=== PATIENT | female | born 1990 | race American Indian/Alaskan Native ===

== ENCOUNTER 2017-06-04 12:18 | Inpatient (IN) | payer MEDICAID ==
--- NOTE | 2017-06-04 13:12 | History and Physical Report ---
History of Present Illness Date of examination: 06/04/17 (Pt sent from OB office with elevated BP for evaluation) Chief complaint: No PNC, EDC 07/23/2017 = 33wk by u/s and dates Seen at 05/02 and given MGSO4 and steroids x [address] Montoya in consult. 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 Clearly has chronic HTN with possibly some kidney injury due to no meds. Has been prescribed HTN meds when not . Was HTN/PreE with all pregnancies but they all delivered at term. I think it is unlikely that she is significantly pre-eclamptic at this time despite +protein in office. She will be admitted for 24-48 hour Obs for labs, 24 hr urine, BP control and evaluation for possible IUGR. BTL consents signed in office today. Known Hx HSV and anemia This assessment written by . @ today's [facility] period visit in OB office. History of present illness: Vital Signs Height: 64 in. Weight (lb): 152 BMI: 26.1 BP: 178/ 114 mm Hg Ur. Protein: 1+ Ur. Glucose: negative Menstrual History Regularity: regular Menses every: 30 days Duration: 4 LMP: 10/16/2016 LMP reliability: month known LMP character: volunteer services assistant test type: urine test BC at conception: none Planned ? no EDC Calculations LMP: 07/23/2017 EDC Confirmation: 07/23/2017 Gestational Age: 33 weeks Past History : 5 Term Births: 3 Living Children: 3 Para: 3 Aborta: 1 Elect. Ab: 1 # 1 Delivery date: 10/26/2012 Weeks Gestation: 40 labor: no Delivery type: Infant Sex: Male weight: 7-6 Comments: Pre-E, HTN # 2 Delivery date: 05/12/2014 Delivery type: EAB # 3 Delivery date: 01/15/2015 Weeks Gestation: 39+2 labor: no Delivery type: Infant Sex: Male weight: 6-6 Comments: PreE, HTN # 4 Delivery date: 03/23/2016 Weeks Gestation: 38 labor: no Delivery type: Sex: Male weight: 6-0 Past Medical History: Hypertension Past Surgical History: negative Past Medical History Anesthesia Complications: negative Anemia: negative Autoimmune Disorder: negative Bleeding Disorder: negative Blood Transfusions: negative Breast Disease: negative Diabetes: negative Heart Disease: negative Hypertension: positive Hepatitis/Liver Disease: negative Kidney Disease/UTI: negative Neurologic/Epilepsy/Migraines: negative Phlebitis/Varicosities: negative Psychiatric: negative Pulmonary Disease/Asthma: negative Thyroid Disease: negative Hospitalizations: negative Surgery (Non-facs teacher): negative Infection History Hx of STD: none HIV Risk Eval: low risk Hepatitis B Risk Eval: low risk Personal hx. of genital herpes: yes Varicella/Chicken Pox Status: Unknown TB Risk: no Genetic History Congenital Heart Defect: Mom: no Dad: no Juliann Disease: Mom: no Dad: no Thalassemia Mom: no Dad: no Neural Tube Defect Mom: no Dad: no Down's Syndrome Mom: no Dad: no Timi-Sachs Mom: no Dad: no Sickle Cell Disease/Trait Mom: no Dad: no Hemophilia Mom: no Dad: no Muscular Dystrophy Mom: no Dad: no Cystic Fibrosis Mom: no Dad: no [place] Chorea Mom: no Dad: no Mental Retardation Mom: no Dad: no Fragile X Mom: no Dad: no Other Genetic/Chromosomal Disorder Mom: no Dad: no Child w/other defect Mom: no Dad: no Enviromental Exposures Xray Exposure: no Medication, drug, or alcohol use since LMP: no Chemical/Other Exposure: no Exposure to Cat Liter: no Active Medications (reviewed today): None Current Allergies (reviewed today): No known allergies Laboratory Results Routine Urinalysis Leukocytes: 2+ Nitrite: negative Urobilinogen: negative Protein: 1+ Blood: hemolyzed trace Ketone: negative Bilirubin: negative Glucose: negative Urine HCG: positive Review of Systems General Denies fever, chills, sweats, anorexia, fatigue, weakness, malaise, weight loss and sleep disorder. Denies nausea, vomiting, headache, swelling of legs, abdominal pain, vaginal discharge, vaginal bleeding and contractions. Denies vaginal discharge, incontinence, dysuria, hematuria, urinary frequency, amenorrhea, menorrhagia, abnormal vaginal bleeding, pelvic pain, genital sores, decreased libido, painful periods, painful sex, urinary urgency, hot flashes, vaginal dryness, vaginal itching and vaginal odor. CV Denies chest pains, palpitations, syncope, dyspnea on exertion, orthopnea, PND and peripheral edema. Resp Denies cough, dyspnea at rest, excessive sputum, hemoptysis, wheezing and pleurisy. GI Denies nausea, vomiting, diarrhea, constipation, change in bowel habits, abdominal pain, melena, hematochezia, jaundice, gas/bloating, indigestion/ heartburn, dysphagia and odynophagia. Endo Denies cold intolerance, heat intolerance, polydipsia, polyphagia, polyuria and unusual weight change. Breast Denies left breast lump, right breast lump, nipple discharge, bloody discharge from nipple, breast pain, abnormal mammogram and breast enlargement. MS Denies back pain, joint pain, joint swelling, muscle cramps, muscle weakness, stiffness, arthritis, sciatica, restless legs, leg pain at night and leg pain with exertion. Derm Denies rash, itching, dryness and suspicious lesions. Neuro Denies paralysis, paresthesias, headache, seizures, tremors, vertigo, transient blindness, frequent falls, frequent headaches and difficulty walking. Psych Denies depression, anxiety, irritability and mood swings. Eyes Denies blurring, diplopia, irritation, discharge, vision loss, eye pain and photophobia. ENT Denies earache, ear discharge, tinnitus, decreased hearing, nasal congestion, nosebleeds, sore throat and hoarseness. Allergy Denies urticaria, allergic rash, hay fever and recurrent infections. Heme Denies abnormal bruising, bleeding and enlarged lymph nodes. PHYSICAL EXAM HEENT: PERRLA, normal conjunctiva, external nose and nasal mucosa normal, oropharynx clear Neck/Thyroid: supple, thyroid normal Skin no significant abnormal lesions or rashes Chest: respiratory effort normal, clear to auscultation Breasts: normal without skin changes or masses CV: regular, normal S1-S2, no murmur, no rub, no gallop but hyperdynamic heart sounds suggestive of anemia Abdomen: normal bowel sounds, soft, nontender, no HSM Musculoskeletal: grossly normal ROM in joints, no joint tenderness or muscle weakness Neuro: grossly normal DTRs, sensation, strength, cranial nerves Extremities: no clubbing, cyanosis, or edema NAIL ARTIST Exams Vulva/Vagina: No lesions, normal BUS, normal rugae Cervix: No lesions; no cervical motion tenderness, closed Uterus: gravid Fundal Ht: 28 size: SGA Presentation: vertex FHT: 140s activity: + Adnexae: no masses or tenderness Past History - Obstetrical History Expected Date of Delivery: 07/23/17 Actual Gestation: 33 Week(s) 0 Day(s) : 5 Para: 3 (pt reports hypertension with each ) Hx # Term Pregnancies: 3 Induced : 1 Number of Living Children: 3 Medications and Allergies Allergies Allergy/AdvReac Type Severity Reaction Status Date / Time No Known Allergies Allergy Unverified 05/22/14 13:53 Home Medications Medication Instructions Recorded Confirmed Last Taken Type Ferrous Sulfate [Feosol] 325 mg PO DAILY 01/16/15 06/04/17 1 Day Ago History 1 Active Meds: Active Medications Lactated Ringer's (Lactated Ringers) 1,000 mls @ 125 mls/hr IV DIRECT HERNANDEZ - Vital Signs Vital signs: Vital Signs Pulse BP 75 164/96 06/04/17 12:51 06/04/17 12:51 Temp Pulse Resp BP Pulse Ox 97.7 F 66 14 146/87 99 06/04/17 12:59 06/04/17 13:08 06/04/17 12:59 06/04/17 12:53 06/04/17 13:08 - Physical Exam Breasts: Positive: deferred Cardiovascular: Regular rate, Normal S1, Normal S2 Lungs: Positive: Normal air movement Abdomen: Positive: normal appearance, soft, normal bowel sounds. Negative: distention, tenderness Genitourinary (Female): Positive: normal external genitalia Vulva: both: normal Vagina: Positive: normal moisture. Negative: discharge Cervix: Negative: lesion, discharge Uterus: Positive: normal size, normal contour Adnexa: both: normal Anus/Rectum: Positive: normal perianal skin, heme negative. Negative: rectal mass, hemorrhoids Extremities: Positive: normal Deep Tendon Reflex Grade: Normal +2 - Obstetrical FHR: category 1 Uterine Contraction Monitor Mode: External Uterine Contraction Pattern: Absent Uterine Tone Measurement Phase: Resting Results Result Diagrams: 06/04/17 13:33 All other labs normal. PN labs drawn at this visit PIH labs drawn also. Ongoing 24hr urine Assessment and Plan No PNC, EDC 07/23/2017 = 33wk by u/s and dates Seen at [facility] /21 and given MGSO4 and steroids x [address] Montoya in consult. 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 Clearly has chronic HTN with possibly some kidney injury due to no meds. Has been prescribed HTN meds when not . Was HTN/PreE with all pregnancies but they all delivered at term. I think it is unlikely that she is significantly pre-eclamptic at this time despite +protein in office. She will be admitted for 24-48 hour Obs for labs, 24 hr urine, BP control and evaluation for possible IUGR. BTL consents signed in office today. Known Hx HSV and anemia This assessment written by . @ today's [facility] period visit in OB office. Pt has arrived to L&D and admitted to [facility]. All labs and consult ordered. Spoke with [facility] message sent to to see pt. Spoke with She recommends No antihypertensive at this time, Apresoline if BP >160/110. They will see pt in AM is aware of admission.
[2017-06-04 13:27] LABS: Urine Drugs of Abuse Note Disclamer
[2017-06-04] MEDS ORDERED: APRESOLINE IV PRN (13:33)
[2017-06-04 13:39] LABS: Bilirubin,Urine NEG (Negative); Blood,Urine NEG (Negative); Ketones,Urine NEG (Negative); Leukocyte Esterase,Urine TR (Negative); Mucus,Urine 1+ /HPF; Nitrite,Urine NEG (Negative); WBC,Urine < 1.0 /HPF (0.0-6.0)
[2017-06-04 14:11] LABS: Hematocrit 28.1 % (30.3-42.9); Hemoglobin 9.4 gm/dl (10.1-14.3); Mean Corpuscular HGB Conc 33 % (30-34); Mean Corpuscular Volume 76 fl (79-97); Platelet Count 105 K/mm3 (140-440); Red Blood Count 3.69 M/mm3 (3.65-5.03); White Blood Count 5.3 K/mm3 (4.5-11.0)
[2017-06-04 14:13] LABS: Mean Corpuscular Hemoglobin 26 pg (28-32)
[2017-06-04 14:52] LABS: HIV-1 Antigen p24 Non React (Non React); HIVR-1/2 Ab Non React (Non React)
--- NOTE | 2017-06-04 15:08 | Ultrasound Report ---
ULTRASOUND BIOPHYSICAL PROFILE: History: well being Technique: Transabdominal ultrasound with Doppler interrogation. 2 - breathing movements 2 - movements 2 - posture and tone 2 - Qualitative amniotic fluid volume 8 - TOTAL SCORE OF POSSIBLE 8 Heart Rate (bpm) 150
--- NOTE | 2017-06-04 15:10 | Ultrasound Report ---
ULTRASOUND OB GREATER THAN 14 WEEKS FETUS History: well-being Technique: Transabdominal ultrasound with Doppler interrogation. Gestation: Single Position: Cephalic Amniotic Fluid: Normal CAROL = 11.5 cm Placenta: Anterior Placental Grade: 2 Heart Rate: 150 BPM Cervical length: 4.0 cm (Normal > 3 cm) NEUROANATOMY VISUALIZED: Choroid Plexus Cisterna Magnum Cerebellum Lateral Ventricle ANATOMY VISUALIZED: Stomach Kidneys Bladder Diaphragm 4 Chamber Heart Heart 3 Vessel Cord Abd. Cord Insert SPINE VISUALIZED: Longitudinal Transverse BPD: 8.0 cm = 32 w 2 d HC: 30.0 cm = 33 w 2 d AC: 29.0 cm = 33 w 3 d FL: 6.4 cm = 33 w 0 d HC/AC Ratio: 1.04 Cephalic Index: 80.8 Estimated Weight: 2088 grams. 39th percentile Clinical age = 33 w 0 d EDC: 07/23/17 US Gest. Age = 32 w 6 d EDC: Impression: No acute abnormality is appreciated.
[2017-06-04 15:12] LABS: Basophils % (Manual) 0 % (0.0-1.8); Blastocytes % (Manual) 0 %
[2017-06-04 15:13] LABS: Anisocytosis 2+; Elliptocytes Few; Ovalocytes Few
[2017-06-04 15:14] LABS: Platelet Estimate Appears Decreased
[2017-06-04 15:15] LABS: Diff Status Complete; Microcytosis Few
--- NOTE | 2017-06-04 15:40 | Event Note ---
Date: 06/04/17 HTN: first few BP 140-160/95-100 (which is not as bad as office BP of 178/144), has had one dose Apresoline, prob eventually will need Labetolol. Patient is asymptomatic, RUQ not tender, DTR 1+/2+ CBC: platelets low at 106,000 (I believe they were low a month ago at [facility]), Hct 28 U/A: protein 1+ (24 hour urine being collected) Possible IUGR (based on clinical exam) is NOT Confirmed by today u/s Status: CAROL wnl, BPP 03/19
--- NOTE | 2017-06-04 18:16 | Event Note ---
Date: 06/04/17 Agree with mw exam and note. Will con't 24 hr urine collection and monitor bp closely. MFM to see pt in the am.
[2017-06-04] MEDS: LACTATED RINGERS 1,000 ML IV SCH (22:33)
--- NOTE | 2017-06-04 22:37 | Event Note ---
Date: 06/04/17 Pt strip reviewed. Will decrease to NST q shift as she has had CAT I tracing since admission and songram was normal today with growth in the 37%tile. BPs con 't to be labile but otherwise not in severe range. Plan of care d/w pt and all questions were addressed and answered.
[2017-06-05] MEDS: LACTATED RINGERS 1,000 ML IV SCH ×2 (05:55→08:01)
[2017-06-05] MEDS ORDERED: APRESOLINE IV ONE (07:30)
--- NOTE | 2017-06-05 09:11 | Event Note ---
Date: 06/05/17 Patient stable at present with mod HTN only. Will make clinical decisions after 24 hr urine resulted. Greatly appreciate Dr Mccarthy's assistance and consult.
[2017-06-05 11:31] LABS: Alanine Aminotransferase 6 units/L (7-56); Albumin 3.4 g/dL (3.9-5); Albumin/Globulin Ratio 1.2 %; Alkaline Phosphatase 113 units/L (35-129); Anion Gap 16 mmol/L; BUN/Creatinine Ratio 8; Blood Urea Nitrogen 3 mg/dL (7-17); Calcium 8.9 mg/dL (8.4-10.2); Carbon Dioxide 23 mmol/L (22-30); Chloride 103.2 mmol/L (98-107); Glucose 85 mg/dL (65-100); Potassium 3.4 mmol/L (3.6-5.0); Sodium 139 mmol/L (137-145); Total Protein 6.3 g/dL (6.3-8.2)
[2017-06-05] MEDS ORDERED: NORMODYNE PO ONE (16:19)
--- NOTE | 2017-06-05 16:47 | Discharge Summary ---
Providers - Providers Date of Admission: 06/04/17 12:55 Date of discharge: 06/05/17 Attending physician: NINO NUNEZ 06/04/17 13:01 Consult to Physician [CONS] Routine Consulting Provider: PATRICK RANGEL Reason For Exam: maternal hypertension; insuff care Place consult to:: LUIS M Notified:: OFFICE Phone number called:: [phone] Was contact made?: Yes If yes, spoke with:: TOREY Time called:: 13:00 Comment:: SPOKE WITH THE OFFICE Primary care physician: RUBBER STAMP DIE INSPECTOR Hospitalization Reason for admission: other (severe hypertension at weeks, for BP control and 24 hr urine) Procedure: other ( testing ) Discharge diagnosis: other (IUP ) Disposition: DC-01 TO HOME OR SELFCARE - Discharge Diagnoses (1) Hypertension complicating in third trimester Status: Acute Comment: 24 hr urine was 252 gm protein so pre eclampsia is ruled out and she is discharged home on Labetolol 100 mg bid to RTO in 1 week All other labs except low platelets were wnl (2) Gestational thrombocytopenia Status: Acute Qualifiers: Trimester: T Comment: plt 105,000 (3) 33 weeks gestation of Status: Acute (4) Anemia Status: Acute Qualifiers: Anemia type: unspecified Iron deficiency anemia type: I Vitamin B12 deficiency anemia type: V Folate deficiency anemia type: F Bone marrow failure anemia type: B Hemolytic anemia type: H Other causes of anemia: O Chronic kidney disease stage: C Qualified Code(s): D64.9 - Anemia, unspecified (5) Insufficient care in third trimester Status: Acute Plan - Discharge Medications Prescriptions: Labetalol [Normodyne TAB] 100 mg PO BID #60 tablet - Provider Discharge Summary Activity: routine Diet: routine Instructions: routine Additional instructions: [] Smoking cessation referral if applicable(refer to patient education folder for contact #) [] Refer to [facility] Booklet Call your doctor immediately for: * Fever > 100.5 * Heavy vaginal bleeding ( >1 pad per hour) * Severe persistent headache * Shortness of breath * Reddened, hot, painful area to leg or breast * Drainage or odor from incision. * Keep incision clean and dry at all times and follow doctor's instructions regarding bathing/showering - Follow up plan Follow up: PRIMARY CAREMD [Primary Care Provider] - 7 Days Forms: Discharge Signature Page
[2017-06-05 17:51] VITALS: BP 144/93
== END 2017-06-05 18:00 | disposition home or self-care (01) | DRG 781 ==
LOC: TRG 12:18 → LD 12:22 → TRG 12:55 → LD 12:55
PROVIDERS: ADMIT Obstetrics & Gynecology; ATTEND Obstetrics & Gynecology
DX: O16.3 Unspecified maternal hypertension, third trimester (principal); O99.113 Other diseases of the blood and blood-forming organs and certain disorders involving the immune mechanism complicating pregnancy, third trimester; O99.013 Anemia complicating pregnancy, third trimester; O14.93 Unspecified pre-eclampsia, third trimester; Z3A.33 33 weeks gestation of pregnancy; D69.6 Thrombocytopenia, unspecified
CPT/HCPCS: 36415; 76805; 76819; 80053; 80307; 81001; 82570; 82951; 82962; 84156; 85007; 85025; 85660; 86592; 86706; 86762; 86803; 86850; 86900; 86901; 87806; J0360; J7120

== ENCOUNTER 2017-07-10 20:39 | Inpatient (IN) | payer MEDICAID ==
[2017-07-10] MEDS ORDERED: LACTATED RINGERS 1,000 ML ONE (21:36)
--- NOTE | 2017-07-10 21:36 | History and Physical Report ---
History of Present Illness Date of examination: 07/10/17 History of present illness: Patient presented to labor and delivery with complaints of regular contractions. Initial examination by triage nurse revealed the patient was 6 cm. Patient's care complicated by late care and chronic hypertension. Menstrual History Regularity: regular Menses every: 30 days Duration: 4 LMP: 10/16/2016 LMP reliability: month known LMP character: freight conductor test type: urine test BC at conception: none Planned ? no EDC Calculations LMP: 07/23/2017 EDC Confirmation: 07/23/2017 Past History : 5 Term Births: 3 Living Children: 3 Para: 3 Aborta: 1 Elect. Ab: 1 # 1 Delivery date: 10/26/2012 Weeks Gestation: 40 labor: no Delivery type: Sex: Male weight: 7-6 Comments: Pre-E, HTN # 2 Delivery date: 05/12/2014 Delivery type: EAB # 3 Delivery date: 01/15/2015 Weeks Gestation: 39+2 labor: no Delivery type: Sex: Male weight: 6-6 Comments: PreE, HTN # 4 Delivery date: 03/23/2016 Weeks Gestation: 38 labor: no Delivery type: Sex: Male weight: 6-0 Past Medical History: Hypertension Past Surgical History: EAB Past Medical History Anesthesia Complications: negative Anemia: negative Autoimmune Disorder: negative Bleeding Disorder: negative Blood Transfusions: negative Breast Disease: negative Diabetes: negative Heart Disease: negative Hypertension: positive Hepatitis/Liver Disease: negative Kidney Disease/UTI: negative Neurologic/Epilepsy/Migraines: negative Phlebitis/Varicosities: negative Psychiatric: negative Pulmonary Disease/Asthma: negative Thyroid Disease: negative Hospitalizations: negative Surgery (Non-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 of genital herpes: yes Varicella/Chicken Pox Status: Unknown TB Risk: no Genetic History Congenital Heart Defect: Mom: no Dad: no Juliann Disease: Mom: no Dad: no Thalassemia Mom: no Dad: no Neural Tube Defect Mom: no Dad: no Down's Syndrome Mom: no Dad: no Timi-Sachs Mom: no Dad: no Sickle Cell Disease/Trait Mom: no Dad: no Hemophilia Mom: no Dad: no Muscular Dystrophy Mom: no Dad: no Cystic Fibrosis Mom: no Dad: no [place] Chorea Mom: no Dad: no Mental Retardation Mom: no Dad: no Fragile X Mom: no Dad: no Other Genetic/Chromosomal Disorder Mom: no Dad: no Child w/other defect Mom: no Dad: no Enviromental Exposures Xray Exposure: no Medication, drug, or alcohol use since LMP: no Chemical/Other Exposure: no Exposure to Cat Liter: no Current Allergies (reviewed today): No known allergies Past History Past Medical History: hypertension, other (see HPI) Past Surgical History: D&C, other (see HPI) MAIL DISTRIBUTION CLERK History: herpes (see HPI), other Family/Genetic History: other (see HPI) Social history: other (see HPI) - Obstetrical History Expected Date of Delivery: 07/23/17 Actual Gestation: 38 Week(s) 2 Day(s) : 5 Para: 3 Hx # Term Pregnancies: 3 Number of Pregnancies: 0 Spontaneous Abortions: 0 Induced : 1 Number of Living Children: 3 Medications and Allergies Allergies Allergy/AdvReac Type Severity Reaction Status Date / Time No Known Allergies Allergy Unverified 05/22/14 13:53 Home Medications Medication Instructions Recorded Confirmed Last Taken Type Ferrous Sulfate [Feosol] 325 mg PO DAILY 01/16/15 06/04/17 1 Day Ago History ~06/03/17 1 Labetalol [Normodyne TAB] 100 mg PO BID #60 tablet 06/05/17 Unknown Rx - Vital Signs Vital signs: Vital Signs Pulse BP 94 H 150/102 07/10/17 21:34 07/10/17 21:34 Temp Pulse Resp BP Pulse Ox 94 H 150/102 07/10/17 21:34 07/10/17 21:34 - Physical Exam Breasts: Positive: deferred Cardiovascular: Regular rate Lungs: Positive: Normal air movement Abdomen: Positive: normal appearance Genitourinary (Female): Positive: normal external genitalia. Negative: perineal /vulvar lesions Vagina: Positive: normal moisture Uterus: Positive: enlarged - Obstetrical FHR: category 1, category 2 Uterine Contraction Monitor Mode: Palpation Results Result Diagrams: 07/10/17 21:45 All other labs normal. Assessment and Plan - Patient Problems (1) 38 weeks gestation of Current Visit: Yes Status: Acute (2) Hypertension complicating in third trimester Current Visit: No Status: Chronic Plan to address problem: Restart patient's and a hypertensive medicine. We will give magnesium sulfate prophylaxis. (3) Insufficient care in third trimester Current Visit: No Status: Acute (4) Active labor at term Current Visit: Yes Status: Acute Plan to address problem: Admit Will follow labor and delivery protocol
[2017-07-10] MEDS ORDERED: BRETHINE SUB-Q PRN (21:41)
[2017-07-10] MEDS ORDERED: ePHEDrine SULFATE IV PRN ×2 (21:41→23:21)
[2017-07-10] MEDS ORDERED: BRETHINE IVP PRN (21:41)
[2017-07-10] MEDS ORDERED: PHENERGAN PO PRN (21:41)
[2017-07-10] MEDS ORDERED: STADOL IV PRN (21:41)
[2017-07-10] MEDS ORDERED: MAGNESIUM SULFATE 4GM/100ML 4 GM/100 ML BAG IV ONE (21:43)
[2017-07-10 22:00] LABS: Hematocrit 28.3 % (30.3-42.9); Hemoglobin 9.3 gm/dl (10.1-14.3); Mean Corpuscular HGB Conc 33 % (30-34); Mean Corpuscular Volume 79 fl (79-97); Platelet Count 105 K/mm3 (140-440); Red Blood Count 3.61 M/mm3 (3.65-5.03); White Blood Count 5.4 K/mm3 (4.5-11.0)
[2017-07-10] MEDS ORDERED: PITOCin/NS 20 UNIT/1000ML DRIP 20 UNITS/1,000 ML BAG IV SCH (22:00)
[2017-07-10] MEDS ORDERED: LACTATED RINGERS 1,000 ML IV SCH (22:00)
[2017-07-10] MEDS: NORMODYNE PO SCH (22:22)
[2017-07-10 22:28] LABS: Mean Corpuscular Hemoglobin 26 pg (28-32)
[2017-07-10] MEDS: MAGNESIUM SULFATE 40GM/1000ML 40 GM/1,000 ML BAG IV SCH (22:45)
[2017-07-10] MEDS ORDERED: APRESOLINE IV ONE (23:04)
[2017-07-10] MEDS ORDERED: NARCAN 2 MG/2 ML IV PRN (23:21)
--- NOTE | 2017-07-10 23:21 | Anesthesia Consultation ---
Anesthesia Consult and Med Hx Date of service: 07/10/17 - Airway Anesthetic Teeth Evaluation: Good ROM Head & Neck: Adequate Mental/Hyoid Distance: Adequate Mallampati Class: Class II Intubation Access Assessment: Good - Pulmonary Exam CTA: Yes - Cardiac Exam Cardiac Exam: No Murmur - Pre-Operative Health Status ASA Pre-Surgery Classification: ASA2 Proposed Anesthetic Plan: Epidural - Pulmonary Hx Asthma: No COPD: No Hx Pneumonia: No - Cardiovascular System Hx Hypertension: Yes - Central Nervous System Hx Seizures: No Hx Psychiatric Problems: No - Endocrine Hx Renal Disease: No Hx End Stage Renal Disease: No Hx Hypothyroidism: No Hx Hyperthyroidism: No - Hematic Hx Anemia: Yes Hx Sickle Cell Disease: No - Other Systems Hx Alcohol Use: No
[2017-07-10] MEDS ORDERED: fentaNYL-BUPIV 2 MCG/ML-0.125% 200 MCG/100 ML BAG EPIDURAL SCH (23:45)
[2017-07-11] MEDS ORDERED: APRESOLINE IV ONE (00:14)
[2017-07-11] MEDS: NORMODYNE PO SCH ×3 (00:54→21:31)
--- NOTE | 2017-07-11 00:56 | Procedure Note ---
OB Delivery Note - Delivery Date of Delivery: 07/11/17 Surgeon: MIRIAM ARELLANO Estimated blood loss: other (400cc) - Vaginal Delivery presentation: vertex Delivery position: OA Delivery induction: none Delivery monitor: external FHT, external uterine Route of delivery: Episiotomy: none Delivery laceration: 1st degree Anesthesia: epidural - Infant A at 1 minute: 8 at 5 minutes: 9 Gender: Female
[2017-07-11] MEDS ORDERED: MILK OF MAGNESIA PO PRN (03:24)
[2017-07-11] MEDS ORDERED: TYLENOL PO PRN (03:24)
[2017-07-11] MEDS ORDERED: BENADRYL PO PRN (03:24)
[2017-07-11] MEDS ORDERED: TUCKS PAD TP PRN (03:24)
[2017-07-11] MEDS ORDERED: DULCOLAX PR PRN (03:24)
[2017-07-11] MEDS ORDERED: PHENERGAN PO PRN (03:24)
[2017-07-11] MEDS ORDERED: SODIUM CHLORIDE FLUSH SYRINGE 10 ML IV PRN (03:24)
[2017-07-11 03:35] LABS: Bilirubin,Urine NEG (Negative); Blood,Urine MOD (Negative); Ketones,Urine 80 mg/dL (Negative); Leukocyte Esterase,Urine TR (Negative); Mucus,Urine FEW /HPF; Nitrite,Urine NEG (Negative); Protein,Urine <15 mg/dL mg/dL (Negative); Urobilinogen,Urine < 2.0 mg/dL (<2.0)
[2017-07-11] MEDS: NORCO 5/325 PO PRN ×3 (03:46→21:30)
[2017-07-11] MEDS: MOTRIN PO SCH ×2 (03:47→09:56)
--- NOTE | 2017-07-11 07:11 | Progress Note ---
Assessment and Plan - Patient Problems (1) Pre-eclampsia in period Onset Date: ~07/11/17 Current Visit: Yes Status: Acute Plan to address problem: Pt resting No c/o GANDHI, blurred vision, chest pain BP 140/90 MGSO4 infusing @ 2gm/ hr FF below umb Lochia small Perineum intact Mag Level 4.7 this AM Adequate output noted in tobias. H&H pending Doing well s/p vag delivery; PP PreE P: continue pathway Complete MGSO4 untill 24hr PP.(1743) Will continue Labetalol 200mg po BID aware Subjective - Subjective Date of service: 07/11/17 (resting No c/o voiced) Principal diagnosis: 07/11/17 PreE MGSO4 Patient reports: appetite normal, voiding normally (tobias draining clear yellow urine), pain well controlled : doing well Objective - Vital Signs Latest vital signs: Vital Signs Temp Pulse Resp BP BP Pulse Ox 07/11/17 03:10 98.6 F 71 16 145/91 07/11/17 02:32 88 99 07/11/17 02:27 85 99 07/11/17 02:23 81 136/84 07/11/17 02:22 77 100 07/11/17 02:17 81 100 07/11/17 02:12 80 98 07/11/17 02:08 73 132/82 07/11/17 02:07 80 98 07/11/17 02:02 78 98 07/11/17 01:57 82 99 07/11/17 01:53 78 127/77 07/11/17 01:52 80 100 07/11/17 01:47 80 99 07/11/17 01:42 83 99 07/11/17 01:38 78 122/73 07/11/17 01:37 78 99 07/11/17 01:32 78 98 07/11/17 01:27 82 99 07/11/17 01:23 80 118/71 07/11/17 01:22 77 100 07/11/17 01:17 75 99 07/11/17 01:12 77 100 07/11/17 01:08 96.5 F L 80 18 124/74 124/74 100 07/11/17 01:07 80 98 07/11/17 01:02 71 98 07/11/17 00:57 74 99 07/11/17 00:54 73 129/77 07/11/17 00:53 81 139/89 07/11/17 00:52 77 99 07/11/17 00:47 83 139/89 99 07/11/17 00:42 86 100 07/11/17 00:38 80 180/102 07/11/17 00:37 86 99 07/11/17 00:32 83 99 07/11/17 00:27 86 98 07/11/17 00:22 93 H 100 07/11/17 00:17 84 99 07/11/17 00:12 86 99 07/11/17 00:07 90 179/109 98 07/11/17 00:02 86 188/112 99 07/10/17 23:57 84 157/103 99 07/10/17 23:52 91 H 98 07/10/17 23:51 83 146/95 07/10/17 23:49 81 157/99 07/10/17 23:47 86 165/100 99 07/10/17 23:45 86 166/98 07/10/17 23:43 90 155/105 07/10/17 23:42 89 99 07/10/17 23:39 92 H 164/105 07/10/17 23:37 97 H 173/111 99 07/10/17 23:35 97 H 176/113 07/10/17 23:33 98 H 185/111 07/10/17 23:32 98 H 100 07/10/17 23:11 85 191/115 07/10/17 23:09 85 191/115 07/10/17 23:06 85 172/104 07/10/17 22:56 86 185/109 07/10/17 22:41 81 155/99 07/10/17 22:38 97.5 F L 18 07/10/17 22:33 96 H 179/113 07/10/17 22:22 175/112 07/10/17 22:04 91 H 166/109 07/10/17 21:54 89 168/103 07/10/17 21:34 94 H 150/102 Intake and Output 07/10/17 07/11/17 07/11/17 22:59 06:59 14:59 Intake Total 300 Balance 300 Intake: Intake, Free Water 300 Other: Weight 341 lb 11.464 oz 153 lb Estimated Blood Loss 400 - Exam Breasts: Present: normal Cardiovascular: Present: Regular rate Lungs: Present: Normal air movement Abdomen: Present: normal appearance, soft, normal bowel sounds Uterus: Present: normal, fundal height below umbilicus Extremities: Present: normal, edema Deep Tendon Reflex Grade: Normal +2 Incision: Present: normal, dry, intact - Labs Labs: Abnormal lab results 07/10/17 07/11/17 07/11/17 Range/Units 21:45 00:48 06:07 RBC 3.61 L (3.65-5.03) M/mm3 Hgb 9.3 L (10.1-14.3) gm/dl Hct 28.3 L (30.3-42.9) % MCH 26 L (28-32) pg RDW 24.0 H (13.2-15.2) % Plt Count 105 L (140-440) K/mm3 Magnesium 3.60 H 4.70 H (1.7-2.3) mg/dL
[2017-07-11] MEDS ORDERED: LACTATED RINGERS 1,000 ML ONE (09:24)
[2017-07-11] MEDS ORDERED: LACTATED RINGERS 1,000 ML IV SCH (10:30)
[2017-07-11 14:23] LABS: Hematocrit 21.4 % (30.3-42.9); Hemoglobin 6.9 gm/dl (10.1-14.3)
[2017-07-11] MEDS: MAGNESIUM SULFATE 40GM/1000ML 40 GM/1,000 ML BAG IV SCH (16:29)
[2017-07-11] MEDS: FEOSOL PO SCH ×2 (18:31→21:30)
[2017-07-11] MEDS: COLACE PO SCH ×2 (18:31→21:30)
[2017-07-12] MEDS: MOTRIN PO SCH ×4 (01:01→18:02)
[2017-07-12] MEDS: NORCO 5/325 PO PRN (05:03)
--- NOTE | 2017-07-12 08:33 | Progress Note ---
Assessment and Plan Patient doing well, well, denies GANDHI, epigastric pain or visual changes. b/p's 130-150's/80-90's, H&H 6.9/21.4, asymptomatic (Pt was anemic prior to delivery.) continue rx FE. Plan to start labetalol and continue to monitor blood pressures. Continue current postop care. - Patient Problems (1) Vaginal delivery Current Visit: Yes Status: Acute (2) Pre-eclampsia in period Onset Date: ~07/11/17 Current Visit: Yes Status: Acute (3) Anemia Onset Date: 01/17/15 Current Visit: No Status: Acute Qualifiers: Anemia type: unspecified Qualified Code(s): D64.9 - Anemia, unspecified Subjective - Subjective Date of service: 07/12/17 Principal diagnosis: 07/11/17 PreE MGSO4 Patient reports: appetite normal, voiding normally, pain well controlled, ambulating normally, other (denies GANDHI, visual changes or epigastric pain), no dizzy ambulation, no nauseated [place]: doing well, nursing well Objective - Vital Signs Latest vital signs: Vital Signs Temp Pulse Resp BP BP Pulse Ox 07/12/17 04:40 98.3 F 81 20 153/89 98 07/12/17 01:30 97.8 F 81 20 156/84 98 07/11/17 21:31 82 148/89 07/11/17 20:45 98.7 F 82 20 148/89 98 07/11/17 16:40 97.6 F 94 H 18 132/87 07/11/17 12:50 95.5 F L 75 18 121/78 07/11/17 10:00 97.8 F 91 H 18 139/79 07/11/17 09:36 90 139/79 07/11/17 08:30 97.8 F 84 18 153/93 Intake and Output 07/11/17 07/12/17 07/12/17 23:59 07:59 15:59 Intake Total 1006.667 240 Output Total 800 400 Balance 206.667 -160 Intake: IV 886.667 MAGNESIUM SULFATE 40GM/ 886.667 1000ML 40 gm In 1,000 ml @ 2 GM/HR 50 mls/hr IV DIRECT HERNANDEZ Rx#:[id number] Oral 120 240 Output: Urine 800 400 Indwelling Catheter 800 400 Other: Total, Intake Amount 120 120 Total, Output Amount 800 400 # Voids Indwelling Catheter 1 - Exam Breasts: Present: normal, Cardiovascular: Present: Regular rate Lungs: Present: Clear to auscultation, Normal air movement Abdomen: Present: normal appearance, soft, normal bowel sounds Vulva: both: laceration/episiotomy Uterus: Present: normal, firm, fundal height at umbilicus Extremities: Present: normal Deep Tendon Reflex Grade: Normal +2 - Labs Labs: Abnormal lab results 07/11/17 07/11/17 07/11/17 Range/Units 14:03 14:03 21:27 Hgb 6.9 L (10.1-14.3) gm/dl Hct 21.4 L D (30.3-42.9) % Magnesium 5.30 H 5.40 H (1.7-2.3) mg/dL
--- NOTE | 2017-07-12 09:02 | Discharge Summary ---
Providers - Providers Date of Admission: 07/10/17 22:14 Date of discharge: 07/12/17 (desires d/c home) Attending physician: MIRIAM ARELLANO 07/11/17 03:24 Consult to Historian Research Assistant [CONS] Routine Reason For Exam: assistance with , SNS Primary care physician: MIRIAM ARELLANO Hospitalization Reason for admission: active labor Delivery: Episiotomy: none Laceration: 1st degree Incision: normal, dry, intact Other procedures: none complications: none Discharge diagnosis: IUP at term delivered Calvin baby: female Hospital course: vaginal delivery w/ pre-e Condition at discharge: Good Disposition: DC-01 TO HOME OR SELFCARE - Discharge Diagnoses (1) Vaginal delivery Status: Acute (2) Pre-eclampsia in period Status: Acute (3) Anemia Status: Acute Qualifiers: Anemia type: unspecified Qualified Code(s): D64.9 - Anemia, unspecified Plan - Discharge Medications Prescriptions: Ibuprofen [Motrin 800 MG tab] 800 mg PO TID PRN #30 tablet PRN Reason: Pain Labetalol [Normodyne TAB] 200 mg PO BID #60 tablet - Provider Discharge Summary Activity: routine, no sex for 6 weeks, no heavy lifting 4 weeks, no strenuous exercise Diet: routine Instructions: routine Additional instructions: [] Smoking cessation referral if applicable(refer to patient education folder for contact #) [] Refer to [facility] Booklet Call your doctor immediately for: * Fever > 100.5 * Heavy vaginal bleeding ( >1 pad per hour) * Severe persistent headache * Shortness of breath * Reddened, hot, painful area to leg or breast * Drainage or odor from incision. * Keep incision clean and dry at all times and follow doctor's instructions regarding bathing/showering - Follow up plan Follow up: MIRIAM ARELLANO MD [Primary Care Provider] - 7 Days (Congratulations! Please call [phone] to schedule your blood pressure visit in 1 weeks. Call for any questions or concerns. )
[2017-07-12] MEDS ORDERED: NORMODYNE PO SCH (10:00)
[2017-07-12] MEDS ORDERED: NORMODYNE ONE ×2 (10:11→16:49)
[2017-07-12] MEDS: COLACE PO SCH ×2 (10:26→21:37)
[2017-07-12] MEDS: FEOSOL PO SCH ×2 (10:26→21:36)
--- NOTE | 2017-07-12 11:03 | Progress Note ---
Subjective Date of service: 07/12/17 Principal diagnosis: 07/11/17 PreE MGSO4 Interval history: 1st day after normal vaginal delivery Patient is in the bed, comfortable. Pain is well controlled with pain meds. Ambulated well. No residual neurological deficit. No anesthesia complications. Objective - Constitutional Vitals: Vital Signs - 12hr 07/12/17 07/12/17 07/12/17 01:30 04:40 10:29 Temperature 97.8 F 98.3 F Pulse Rate 81 81 Respiratory 20 20 20 Rate Blood Pressure 156/84 153/89 [Left] O2 Sat by Pulse 98 98 Oximetry - Labs CBC & Chem 7: 07/11/17 14:03 Labs: Abnormal lab results 07/11/17 07/11/17 07/11/17 Range/Units 14:03 14:03 21:27 Hgb 6.9 L (10.1-14.3) gm/dl Hct 21.4 L D (30.3-42.9) % Magnesium 5.30 H 5.40 H (1.7-2.3) mg/dL
[2017-07-12] MEDS ORDERED: APRESOLINE IV NR (16:37)
[2017-07-12] MEDS: NORMODYNE PO SCH ×2 (16:55→21:38)
[2017-07-12] MEDS ORDERED: APRESOLINE IV ONE ×2 (18:52→20:37)
[2017-07-12] MEDS ORDERED: AMBIEN PO PRN (20:38)
--- NOTE | 2017-07-12 20:43 | Progress Note ---
Assessment and Plan - Patient Problems (1) Pre-eclampsia in period Onset Date: ~07/11/17 Current Visit: Yes Status: Acute (2) Hypertension affecting Current Visit: Yes Status: Chronic Qualifiers: Trimester: unspecified trimester Qualified Code(s): O16.9 - Unspecified maternal hypertension, unspecified trimester Plan to address problem: Patient instructed to d/c cold medication that was brought from home. Will restart IV and given another dose of hydralazine. Explained to patient and mother BP's may be elevated d/t visit for which mother feels her BP's are now better. Will try ambien as well Subjective - Subjective Date of service: 07/12/17 Principal diagnosis: 07/11/17 PreE MGSO4 Interval history: Patient's mother in room with 2 children, patient resting in bed. Mother agitated about pt's care. Patient has some cramps and received Motrin however pain is not severe Objective - Vital Signs Latest vital signs: Vital Signs Temp Pulse Resp BP BP Pulse Ox 07/12/17 18:55 72 179/96 07/12/17 18:02 20 07/12/17 17:20 74 169/100 07/12/17 16:00 77 20 172/105 07/12/17 13:00 98.2 F 77 19 169/90 07/12/17 10:29 20 07/12/17 09:00 98.4 F 74 19 168/108 07/12/17 04:40 98.3 F 81 20 153/89 98 07/12/17 01:30 97.8 F 81 20 156/84 98 07/11/17 21:31 82 148/89 07/11/17 20:45 98.7 F 82 20 148/89 98 Intake and Output 07/12/17 07/12/17 07/12/17 06:59 14:59 22:59 Intake Total 240 240 Output Total 400 300 Balance -160 -60 Intake: Oral 240 240 Output: Urine 400 300 Indwelling Catheter 400 Void 300 Other: Total, Intake Amount 120 120 Total, Output Amount 400 300 # Voids Indwelling Catheter 1 Void 1 - Labs Labs: Abnormal lab results 07/11/17 Range/Units 21:27 Magnesium 5.40 H (1.7-2.3) mg/dL
[2017-07-13] MEDS: MOTRIN PO SCH ×5 (00:05→22:47)
[2017-07-13] MEDS: NORMODYNE PO SCH ×4 (05:40→21:35)
--- NOTE | 2017-07-13 08:56 | Progress Note ---
Assessment and Plan - Patient Problems (1) Pre-eclampsia in period Onset Date: ~07/11/17 Current Visit: Yes Status: Acute (2) Vaginal delivery Current Visit: Yes Status: Acute (3) Chronic hypertension Current Visit: Yes Status: Acute Plan to address problem: -pt continues to have bps in sever ranges -cardiology consult -con't labetalol 300mg TID and will add procardia 60mg today Subjective - Subjective Date of service: 07/13/17 Principal diagnosis: 07/11/17 PreE MGSO4; CHTN Interval history: Pt has no c/o but continues to have spikes in bp. There were two bps that were not in severe range overnight but all others have been in 160s/100s or higher. Pt advised that bp at least needs to be <160/105 prior to d/c home. She expressed understanding. Will add procardia 60 at this time and obtain cardiology consult for assistance with bp management. Patient reports: appetite normal, voiding normally, pain well controlled : doing well Objective - Vital Signs Latest vital signs: Vital Signs Temp Pulse Resp BP BP 07/13/17 05:42 18 07/13/17 05:40 78 150/100 07/13/17 00:05 16 07/12/17 22:11 98.9 F 83 18 159/92 07/12/17 21:38 76 182/114 07/12/17 21:27 76 182/114 07/12/17 18:55 72 179/96 07/12/17 18:02 20 07/12/17 17:20 74 169/100 07/12/17 16:00 77 20 172/105 07/12/17 13:00 98.2 F 77 19 169/90 07/12/17 10:29 20 07/12/17 09:00 98.4 F 74 19 168/108 - Exam Cardiovascular: Present: Normal S1, Normal S2 Lungs: Present: Clear to auscultation, Normal air movement Abdomen: Present: normal appearance, soft. Absent: distention, tenderness, guarding Extremities: Present: normal. Absent: tenderness, edema
[2017-07-13] MEDS: PROCARDIA XL PO SCH (09:29)
[2017-07-13] MEDS: FEOSOL PO SCH ×2 (11:08→21:34)
[2017-07-13] MEDS: NORCO 5/325 PO PRN (11:08)
[2017-07-13] MEDS ORDERED: APRESOLINE IV ONE (12:00)
--- NOTE | 2017-07-13 12:41 | Consultation ---
Past History Social history: other (see HPI) Medications and Allergies Allergies Allergy/AdvReac Type Severity Reaction Status Date / Time No Known Allergies Allergy Unverified 05/22/14 13:53 Home Medications Medication Instructions Recorded Confirmed Last Taken Type Ferrous Sulfate [Feosol] 325 mg PO DAILY 01/16/15 06/04/17 1 Day Ago History ~06/03/17 1 Labetalol [Normodyne TAB] 100 mg PO BID #60 tablet 06/05/17 Unknown Rx Ibuprofen [Motrin 800 MG tab] 800 mg PO TID PRN #30 tablet 07/11/17 Unknown Rx Labetalol [Normodyne TAB] 200 mg PO BID #60 tablet 07/11/17 Unknown Rx Docusate Sodium [Colace] 100 mg PO BID PRN #60 capsule 07/12/17 Unknown Rx Ferrous Sulfate [Feosol 325 MG tab] 325 mg PO TID #90 tablet 07/12/17 Unknown Rx Active Meds: Active Medications Acetaminophen (Tylenol) 650 mg PO Q4H PRN PRN Reason: Pain MILD(1-3)/Fever >100.5/GANDHI Acetaminophen/Hydrocodone Bitart ([place] 5/325) 2 each PO Q6H PRN PRN Reason: Pain, Moderate (4-6) Last Admin: 07/13/17 11:08 Dose: 2 each Bisacodyl (Dulcolax) 10 mg MI BID PRN PRN Reason: Constipation Diphenhydramine HCl (Benadryl) 25 mg PO Q6H PRN PRN Reason: Itching Docusate Sodium (Colace) 100 mg PO BID [facility] Last Admin: 07/12/17 21:37 Dose: 100 mg Ferrous Sulfate (Feosol) 325 mg PO BID [facility] Last Admin: 07/13/17 11:08 Dose: 325 mg Lactated Ringer's (Lactated Ringers) 1,000 mls @ 75 mls/hr IV DIRECT [facility] Ibuprofen (Motrin) 600 mg PO Q6HR [facility] Last Admin: 07/13/17 05:42 Dose: 600 mg Labetalol HCl (Normodyne) 300 mg PO TID [facility] Last Admin: 07/13/17 05:40 Dose: 300 mg Magnesium Hydroxide (Milk Of Magnesia) 30 ml PO HS PRN PRN Reason: Constipation Nifedipine (Procardia Xl) 60 mg PO QDAY [facility] Last Admin: 07/13/17 09:29 Dose: 60 mg Promethazine HCl (Phenergan) 25 mg PO Q6H PRN PRN Reason: Nausea And Vomiting Sodium Chloride (Sodium Chloride Flush Syringe 10 Ml) 10 ml IV PRN PRN PRN Reason: LINE FLUSH [place]/Glycerin (Tucks Pad) 1 each TP PRN PRN PRN Reason: Hemorrhoid/cleansing/soothing Zolpidem Tartrate (Ambien) 5 mg PO QHS PRN PRN Reason: Sleep Last Admin: 07/12/17 21:36 Dose: 5 mg Physical Examination Vital Signs Pulse BP 94 H 150/102 07/10/17 21:34 07/10/17 21:34 Results 07/11/17 14:03 Assessment and Plan full consult dictated thanks
[2017-07-13 14:08] LABS: Hemoglobin 8.3 gm/dl (10.1-14.3); Mean Corpuscular HGB Conc 33 % (30-34); Mean Corpuscular Hemoglobin 26 pg (28-32); Mean Corpuscular Volume 79 fl (79-97); Platelet Count 135 K/mm3 (140-440); Red Blood Count 3.16 M/mm3 (3.65-5.03); White Blood Count 8.6 K/mm3 (4.5-11.0)
[2017-07-13] MEDS ORDERED: NORMODYNE ONE (14:24)
[2017-07-13 14:25] LABS: Alanine Aminotransferase 20 units/L (7-56); Albumin 3.3 g/dL (3.9-5); Albumin/Globulin Ratio 1.1 %; Alkaline Phosphatase 134 units/L (35-129); Anion Gap 20 mmol/L; BUN/Creatinine Ratio 17; Bilirubin,Total < 0.20 mg/dL (0.1-1.2); Blood Urea Nitrogen 5 mg/dL (7-17); Calcium 9.2 mg/dL (8.4-10.2); Carbon Dioxide 23 mmol/L (22-30); Glucose 99 mg/dL (65-100); Potassium 3.8 mmol/L (3.6-5.0); Sodium 138 mmol/L (137-145); Total Protein 6.4 g/dL (6.3-8.2)
--- NOTE | 2017-07-13 17:17 | Event Note ---
Date: 07/13/17 Blood pressures are normal at this time. Pt doing well. I d/w plan of care and need for completion of evaluation by cardiology. Pt has no symptoms at this time. Will con't procardia 60xl qday and Labetalol 300mg tid.
[2017-07-13] MEDS: COLACE PO SCH ×2 (18:27→21:34)
--- NOTE | 2017-07-13 21:27 | Consultation ---
CARDIOLOGY CONSULTATION REFERRING PHYSICIAN: Dr. Kimberly Ordaz. REASON FOR CONSULTATION: Advice an opinion regarding hypertension, HISTORY OF PRESENT ILLNESS: The patient is a very pleasant 26-year-old female who underwent a vaginal delivery on 07/11/2017 without complication. We are consulted for hypertension. She has a history of chronic hypertension, anemia, tobacco abuse, marijuana use, insufficient care. She is seen at bedside. She denies any complaints whatsoever. She is successfully. No chest pain, shortness of breath, syncope, presyncope. Blood pressures have been elevated. FAMILY HISTORY: No family history of premature heart disease or sudden cardiac . REVIEW OF SYSTEMS: No hematochezia, melena, hemoptysis, hematemesis. No fevers, chills, nausea or vomiting. No headache or blurred vision. ALLERGIES: No known drug, food, or environmental allergies. MEDICATIONS: Inpatient and outpatient medications reviewed. REVIEW OF SYSTEMS: As per HPI. PHYSICAL EXAMINATION: VITAL SIGNS: Blood pressure earlier today was 173/70. Most recent is 140/90. Medications reviewed. HEENT: Sclerae icteric. NECK: Supple. No mass or JVD. CHEST: Clear to auscultation bilaterally. Good air movement. CARDIOVASCULAR: Regular rhythm, S1, S2. ABDOMEN: Soft, nontender, nondistended. Normoactive bowel sounds in 4 quadrants. No mass or bruits. EXTREMITIES: No cyanosis, clubbing, edema. Good peripheral pulses. SKIN: Intact. No rashes. LABORATORY DATA: Hemoglobin is 6.9, hematocrit is 21.4. ASSESSMENT AND PLAN: In summary, the patient is a pleasant 26-year-old -Japanese female, successful vaginal delivery several days ago, is now with uncontrolled hypertension, on Procardia 60 to start today, labetalol 300 three times a day and p.r.n. IV hydralazine 10 mg. Blood pressure is somewhat improved at this point. Procardia was just added today. She is entirely asymptomatic. She has had a poor care, has not followed with a primary either. At this point, we will check an EKG, check echocardiogram, watch her blood pressure closely. We will check a CBC and BMP. She does have a severe anemia as well. We will follow along with you. JOB# [id number] MATT/NTS
[2017-07-14] MEDS: MOTRIN PO SCH ×3 (00:53→11:38)
[2017-07-14] MEDS: NORMODYNE PO SCH (08:58)
--- NOTE | 2017-07-14 09:20 | Progress Note ---
Assessment and Plan - Patient Problems (1) Pre-eclampsia in period Onset Date: ~07/11/17 Current Visit: Yes Status: Acute (2) Vaginal delivery Current Visit: Yes Status: Acute (3) Chronic hypertension Current Visit: Yes Status: Acute Plan to address problem: -await cards recs -bps improved with change in meds -dc home today if cleared by cardiology Subjective - Subjective Date of service: 07/14/17 Principal diagnosis: 07/11/17 PreE MGSO4; CHTN Interval history: BP currently responding to meds at this time. Echo ordered as per cardiology. Will await clearance for d/c at this time as she has had improvement of bp on current meds. No c/o at this time. Patient reports: appetite normal, voiding normally, pain well controlled [place]: doing well Objective - Vital Signs Latest vital signs: Vital Signs Temp Pulse Resp BP BP Pulse Ox 07/14/17 01:26 110 H 117/74 99 07/14/17 01:21 97.6 F 20 07/13/17 21:36 135/93 07/13/17 21:35 101 H 135/93 07/13/17 21:34 142/102 07/13/17 16:00 98.4 F 102 H 20 140/88 100 07/13/17 14:40 140/90 07/13/17 13:20 121 H 130/79 07/13/17 12:15 107 H 149/98 07/13/17 11:56 96 H 155/101 99 07/13/17 11:50 90 152/103 99 07/13/17 11:45 87 173/110 173/110 99 07/13/17 11:08 20 Intake and Output 07/13/17 07/14/17 07/14/17 22:59 06:59 14:59 Intake Total 720 480 Balance 720 480 Intake: Oral 720 480 Other: Total, Intake Amount 720 240 # Voids Void 5 1 - Exam Abdomen: Present: normal appearance, soft, normal bowel sounds Extremities: Present: normal Deep Tendon Reflex Grade: Normal +2 - Labs Labs: Abnormal lab results 07/13/17 07/13/17 Range/Units 13:26 13:26 RBC 3.16 L (3.65-5.03) M/mm3 Hgb 8.3 L (10.1-14.3) gm/dl Hct 25.0 L (30.3-42.9) % MCH 26 L (28-32) pg RDW 24.0 H (13.2-15.2) % Plt Count 135 L (140-440) K/mm3 BUN 5 L (7-17) mg/dL Creatinine 0.3 L (0.7-1.2) mg/dL Alkaline Phosphatase 134 H (35-129) units/L Albumin 3.3 L (3.9-5) g/dL
[2017-07-14] MEDS: COLACE PO SCH (11:38)
[2017-07-14] MEDS: PROCARDIA XL PO SCH (11:38)
[2017-07-14 11:43] VITALS: BP 148/88
--- NOTE | 2017-07-14 12:22 | Event Note ---
Date: 07/14/17 tte reviewed - mild lvh w nl lv fxn bp improved asx low salt diet cont current bp meds ambulatory bp monitoring f/u w me in office in 1-2 weeks for bp check
--- NOTE | 2017-07-14 12:43 | Discharge Summary ---
Providers - Providers Date of Admission: 07/10/17 22:14 Date of discharge: 07/14/17 Attending physician: MIRIAM ARELLANO 07/11/17 03:24 Consult to Surveillance Manager [CONS] Routine Reason For Exam: assistance with , SNS 07/13/17 08:57 Consult to Physician [CONS] Routine Consulting Provider: ANNAMARIE ROSS Reason For Exam: CHTN; Post elevated bps;assit with bp mgt Place consult to:: Dr. Annamarie Ross, cardiology Notified:: yes Was contact made?: Yes If yes, spoke with:: answering service Time called:: 10:00 Primary care physician: MIRIAM ARELLANO Hospitalization Reason for admission: active labor Delivery: Procedure details: see delivery note complications: other (hypertension ' asymptomatic anemia) Condition at discharge: Good Disposition: DC-01 TO HOME OR SELFCARE - Discharge Diagnoses (1) Pre-eclampsia in period Status: Acute (2) Vaginal delivery Status: Acute (3) Chronic hypertension Status: Acute Plan - Discharge Medications Prescriptions: Docusate Sodium [Colace] 100 mg PO BID PRN #60 capsule PRN Reason: Constipation Ferrous Sulfate [Feosol 325 MG tab] 325 mg PO TID #90 tablet Ibuprofen [Motrin 800 MG tab] 800 mg PO TID PRN #30 tablet PRN Reason: Pain Labetalol [Normodyne TAB] 200 mg PO BID #60 tablet Labetalol [Normodyne TAB] 300 mg PO TID #90 tablet NIFEdipine XL [Procardia Xl] 60 mg PO QDAY #30 tablet - Provider Discharge Summary Activity: routine, no sex for 6 weeks, no heavy lifting 4 weeks Diet: routine Additional instructions: [] Smoking cessation referral if applicable(refer to patient education folder for contact #) [] Refer to [facility] Booklet Call your doctor immediately for: * Fever > 100.5 * Heavy vaginal bleeding ( >1 pad per hour) * Severe persistent headache * Shortness of breath * Reddened, hot, painful area to leg or breast * Drainage or odor from incision. * Keep incision clean and dry at all times and follow doctor's instructions regarding bathing/showering - Follow up plan Follow up: MIRIAM ARELLANO MD [Primary Care Provider] - 7 Days (Congratulations! Please call [phone] to schedule your blood pressure visit in 1 weeks. Call for any questions or concerns. ) Forms: C Discharge Summary
--- NOTE | 2017-07-18 17:14 | Query- General ---
Rashaad Back Corbin Date:____07/18/17 Sixth Grade Teacher/CDS:____Latia / Blas Phone#:__[phone] Exercise your independent professional judgment when responding to this query. Questions asked do not imply a particular answer is desired or expected. We greatly appreciate your clarification on this issue. Clinical Documentation States: 26 year old female was admitted on 07/10/17 The Procedure note (Dr. Alaniz 07/11/17) states " Route of delivery: Episiotomy: none Delivery laceration: 1st degree " Given the above clinical scenario can you please provide an appropriate diagnosis based on your knowledge of the patient: PHYSICIAN RESPONSE: [ ] First degree laceration repaired [ x ] First degree laceration not repaired [ ] Other (Please specify) Present on Admission: [ ] Yes (Y) [ ] Clinically undeterminable (W) [x ]No(N) Please also document response in your Progress Notes and/or Discharge Summary and indicate if the condition was present on admission. MTDD
== END 2017-07-14 14:20 | disposition home or self-care (01) | DRG 774 ==
LOC: TRG 20:39 → LD 22:14 → TRG 22:14 → OB 07-11 02:40
PROVIDERS: ADMIT Obstetrics & Gynecology; ATTEND Obstetrics & Gynecology
PROC: 10E0XZZ Delivery of Products of Conception, External Approach (ICD-10-PCS; principal; 2017-07-11)
PROC: 3E0R3BZ Introduction of Anesthetic Agent into Spinal Canal, Percutaneous Approach (ICD-10-PCS; 2017-07-11)
PROC: 00HU33Z Insertion of Infusion Device into Spinal Canal, Percutaneous Approach (ICD-10-PCS; 2017-07-11)
DX: O99.02 Anemia complicating childbirth (principal); O11.5 Pre-existing hypertension with pre-eclampsia, complicating the puerperium; Z3A.38 38 weeks gestation of pregnancy; Z37.0 Single live birth; D64.9 Anemia, unspecified; O70.0 First degree perineal laceration during delivery; Z82.49 Family history of ischemic heart disease and other diseases of the circulatory system
CPT/HCPCS: 36415; 80053; 81001; 83735; 85014; 85018; 85027; 86592; 86850; 86900; 86901; 88307; 93005; 93010; 93306; 99211; G0463; J0360; J2590; J3475; J7120

== ENCOUNTER 2017-09-10 11:47 | Day surgery (SDC) | payer MEDICAID ==
--- NOTE | 2017-09-04 12:42 | Short Stay Summary ---
Short Stay Documentation Date of service: 09/04/17 Narrative H&P: 26 yo G 5,P4,A1,L 4 who delivered on 07/11/2018 with severe preEclampsia and severe Hypertension now on Labetolol 300 mg tid and Procardia 60XL once daily with excellent control today. She is admitted for laparoscopic bilateral tubal fulguration for permanent sterilization at her request. Her care had been complicated by untreated hypertension which should been diagnosed previous to her . At the time of her delivery about 7 weeks ago, she also had severe preeclampsia and we had some difficulty with controlling her blood pressure. She had an echocardiogram on , which showed mild ventricular hypertrophy with normal left ventricular function and this was while her blood pressure was more or less [id number]. - History Principal diagnosis: elective sterilization Past Medical History: hypertension (and recent severe preeclampsia, now remote from delivery) Past Surgical History: Other (Elective ) Social history: no significant social history - Allergies and Medications Current Medications: Allergies No Known Allergies Allergy (Unverified 05/22/14 13:53) Home Medications Medication Instructions Recorded Confirmed Last Taken Type Ferrous Sulfate [Feosol] 325 mg PO DAILY 01/16/15 07/13/17 09/04/17 History Ibuprofen [Motrin 800 MG tab] 800 mg PO TID PRN #30 tablet 07/11/17 Unknown Rx Labetalol [Normodyne TAB] 300 mg PO TID #90 tablet 07/14/17 09/04/17 08:00 Rx NIFEdipine XL [Procardia Xl] 60 mg PO QDAY #30 tablet 07/14/17 09/04/17 Rx - Physical exam General appearance: no acute distress Integumentary: no rash HEENT: Atraumatic Lungs: Clear to auscultation Breasts: deferred Heart: Regular rate, Normal S1, No murmurs Gastrointestinal: normal, no tenderness, no distended Female Genitourinary: normal Rectal Exam: deferred Extremities: no ischemia, No edema Neurological: Normal gait, Normal speech, Cranial nerves 3-12 NL - Brief post op/procedure progress note Date of procedure: 09/10/17 Pre-op diagnosis: elective sterilization Procedure: Laparoscopic bilateral tubal fulguration Anesthesia: GETA Surgeon: BRANDON ALMANZAR - Disposition Condition at discharge: Good Disposition: - TO HOME OR SELFCARE - Discharge Diagnoses (1) Sterilization Status: Acute (2) Chronic hypertension Status: Acute Short Stay Discharge Plan Activity: no restrictions Weight Bearing Status: Full Weight Bearing Diet: regular Wound: keep clean and dry Follow up with: MIRIAM ARELLANO MD [Primary Care Provider] - 7 Days
[~2017-09-10 11:47] MED LIST: LACTATED RINGERS 1,000 ML IV SCH
[2017-09-10] MEDS ORDERED: NACL BACTERIOSTATIC INFILTRATI ONE (12:25)
[2017-09-10] MEDS ORDERED: MARCAINE-EPI 0.5%-1:200,000 INFILTRATI ONE (12:48)
[2017-09-10 12:50] LABS: Hematocrit 22.4 % (30.3-42.9); Hemoglobin 6.9 gm/dl (10.1-14.3); Mean Corpuscular HGB Conc 31 % (30-34); Mean Corpuscular Volume 75 fl (79-97); Platelet Count 182 K/mm3 (140-440)
[2017-09-10] MEDS ORDERED: SUBLIMAZE ONE (12:51)
[2017-09-10] MEDS ORDERED: DIPRIVAN 10 MG/ML IV ONE (12:52)
[2017-09-10] MEDS ORDERED: XYLOCAINE MPF 2% ONE (12:53)
--- NOTE | 2017-09-10 12:53 | Anesthesia Day of Surgery ---
Anesthesia Day of Surgery - Day of Surgery Patient Examined: Yes Patient H&P Reviewed: Yes Patient is NPO: Yes Beta Blockers: Yes
--- NOTE | 2017-09-10 12:53 | Anesthesia Consultation ---
Anesthesia Consult and Med Hx Date of service: 09/10/17 - Airway Anesthetic Teeth Evaluation: Good ROM Head & Neck: Adequate Mental/Hyoid Distance: Adequate Mallampati Class: Class II Intubation Access Assessment: Probably Good - Pulmonary Exam CTA: Yes - Cardiac Exam Cardiac Exam: RRR - Pre-Operative Health Status ASA Pre-Surgery Classification: ASA2 Proposed Anesthetic Plan: General (Informed consent obtained) - Pulmonary Hx Asthma: No COPD: No Hx Pneumonia: No - Cardiovascular System Hx Hypertension: Yes - Central Nervous System Hx Seizures: No Hx Psychiatric Problems: No - Endocrine Hx Renal Disease: No Hx End Stage Renal Disease: No Hx Hypothyroidism: No Hx Hyperthyroidism: No - Hematic Hx Anemia: Yes Hx Sickle Cell Disease: No - Other Systems Hx Alcohol Use: No
[2017-09-10] MEDS ORDERED: PERCOCET 5/325 PO PRN (12:54)
[2017-09-10] MEDS ORDERED: DILAUDID IV PRN (12:54)
[2017-09-10] MEDS ORDERED: ROBINUL ONE (12:55)
[2017-09-10] MEDS ORDERED: ZEMURON IV ONE (12:55)
[2017-09-10 12:58] LABS: Mean Corpuscular Hemoglobin 23 pg (28-32); Red Cell Distribution Width 20.5 % (13.2-15.2)
[2017-09-10] MEDS ORDERED: VERSED IV NR (13:00)
[2017-09-10] MEDS ORDERED: TRANSDERM-SCOP TD NR (13:00)
[2017-09-10] MEDS ORDERED: PEPCID IV NR (13:00)
[2017-09-10 13:06] VITALS: BP 135/83
[2017-09-10 13:16] LABS: BUN/Creatinine Ratio 20; Blood Urea Nitrogen 6 mg/dL (7-17); Calcium 9.3 mg/dL (8.4-10.2); Hemolysis Index 0
--- NOTE | 2017-09-10 13:37 | Event Note ---
Date: 09/10/17 Patient surgery is cancelled by Anesthesia due to severe anemia. Prior labs from 07/13/18 reveal a lower Hct despite being on iron pills. Hct 25->22.4 Hgb 8.3->6.9 WBC 8.6 ->2.7 Plt 135->182 Will check some anemia labs and repeat HCT in 3 weeks.
[2017-09-10 14:02] LABS: Eosinophils % (Auto) 1.6 % (0.0-4.3); Hematocrit 21.3 % (30.3-42.9); Hemoglobin 6.6 gm/dl (10.1-14.3); Lymphocytes # (Auto) 1.2 K/mm3 (1.2-5.4); Lymphocytes % (Auto) 43.6 % (13.4-35.0); Mean Corpuscular HGB Conc 31 % (30-34); Mean Corpuscular Volume 75 fl (79-97); Monocytes # (Auto) 0.2 K/mm3 (0.0-0.8); Monocytes % (Auto) 7.1 % (0.0-7.3); Platelet Count 164 K/mm3 (140-440); Red Blood Count 2.83 M/mm3 (3.65-5.03)
[2017-09-10 14:14] LABS: INR 0.86 (0.87-1.13)
[2017-09-10 14:22] LABS: % Iron Saturation 3.16 %
[2017-09-10 14:41] LABS: Mean Corpuscular Hemoglobin 23 pg (28-32); Red Cell Distribution Width 20.4 % (13.2-15.2)
== END 2017-09-10 11:48 | disposition home or self-care (01) ==
LOC: OR 11:47
PROVIDERS: ATTEND Obstetrics & Gynecology
DX: Z30.2 Encounter for sterilization (principal); D64.9 Anemia, unspecified; I10 Essential (primary) hypertension; Z79.01 Long term (current) use of anticoagulants; Z53.8 Procedure and treatment not carried out for other reasons
CPT/HCPCS: 36415; 80048; 81025; 82728; 83550; 85025; 85027; 85610; 86850; 86900; 86901; J7120; J2250; J2704; J3010